=== PATIENT | female | born 1965 | race Caucasian/White ===

== ENCOUNTER 2022-03-13 20:46 | Emergency (ER) | payer MEDICAID ==
[~2022-03-13] VITALS: Ht 154.9 cm; Wt 72.6 kg
--- NOTE | 2022-03-13 20:53 | NUR ---
BIBA TAKEN TO BED #6
[2022-03-13 21:01] VITALS: BP 121/82
[2022-03-13] MEDS ORDERED: KETOROLAC 30 MG/ML VIAL IM ONE (21:35)
--- NOTE | 2022-03-13 21:36 | NUR ---
ER AT BEDSIDE
--- NOTE | 2022-03-13 21:52 | NUR ---
PT TO XRAY VIA [employer]
--- NOTE | 2022-03-13 22:08 | NUR ---
PT RETURNED VIA GURNEY TO BED #1
--- NOTE | 2022-03-13 23:08 | NUR ---
PT IS ABLE TO AMBULATE TO AND FROM RESTROOM WITHOUT ASISSTANCE
--- NOTE | 2022-03-13 23:18 | NUR ---
PT UP TO BATHROOM WITH ASSIST . PAIN 06/02.
[2022-03-13] MEDS ORDERED: NAPR-54 PO (23:36)
[2022-03-13 23:51] VITALS: BP 109/62
--- NOTE | 2022-03-13 23:51 | NUR ---
Patient discharged with v/s stable. Written and verbal after care instructions given and explained. Patient verbalized understanding. Ambulatory with steady gait. All questions addressed prior to discharge. Advised to follow up with PMD.
== END 2022-03-13 23:51 | disposition home or self-care (01) ==
LOC: MED 20:46
DX: S20.212A Contusion of left front wall of thorax, initial encounter (principal); Z79.1 Long term (current) use of non-steroidal anti-inflammatories (NSAID); W18.39XA Other fall on same level, initial encounter; Y92.89 Other specified places as the place of occurrence of the external cause; Y93.89 Activity, other specified; Y99.8 Other external cause status
CPT/HCPCS: 71101; 96372; 99283; J1885